=== PATIENT | female | born 1990 | race Two or more races ===

== ENCOUNTER 2019-09-14 19:12 | Emergency (ER) | payer MEDICAID ==
[~2019-09-14] VITALS: Ht 154.9 cm; Wt 81.4 kg
[~2019-09-14 19:12] MED LIST: IBUP200T49 PO; OXYC-302 PO
--- NOTE | 2019-09-14 20:18 | NUR ---
PT TO TRIAGE, PA AT PT'S SIDE FOR EVAL
--- NOTE | 2019-09-14 20:30 | NUR ---
Pt back to room.
[2019-09-14 20:44] LABS: BASOPHILS # (AUTO) 0.04 x10^3/uL (0-0.1); BASOPHILS % (AUTO) 1 % (0-1); EOSINOPHILS # (AUTO) 0.12 x10^3/uL (0-0.4); EOSINOPHILS % (AUTO) 1 % (1-7); LYMPHOCYTES # (AUTO) 1.24 x10^3/uL (1-3.4); LYMPHOCYTES % (AUTO) 15 % (22-44); MD NO; MEAN CORPUSCULAR HEMOGLOBIN 29.5 pg (27.0-34.8); MEAN CORPUSCULAR VOLUME 89.4 fL (80-100); MEAN PLATELET VOLUME 7.2 fL (7.4-10.4); MONOCYTES # (AUTO) 0.73 x10^3/uL (0.2-0.8); MONOCYTES % (AUTO) 9 % (2-9); NEUTROPHILS # (AUTO) 6.43 x10^3/uL (1.8-6.8); NEUTROPHILS % (AUTO) 75 % (42-75); PLATELET COUNT 325 x10^3/uL (130-400); RED BLOOD COUNT 4.83 x10^6/uL (3.82-5.3)
[2019-09-14 20:53] LABS: ALBUMIN 3.8 g/dL (3.4-5.0); ANION GAP 5 mmol/L (5-15); CALCIUM 8.9 mg/dL (8.5-10.1); CHLORIDE 109 mmol/L (98-107); CREATININE 0.86 mg/dL (0.55-1.02)
--- NOTE | 2019-09-14 20:56 | NUR ---
Pt here for vaginal pain s/p intercourse. Pt reports she feels her cervix dislodged and not right. Pt reports no bleeding and no new toys or didnt try anything new with her partner. Pt reports that she also has pelvic pain as well. Pt in [facility] [place], awaiting further orders.
--- NOTE | 2019-09-14 21:00 | NUR ---
pt unable to provide.
--- NOTE | 2019-09-14 21:05 | NUR ---
Ua collected and sent to lab.
[2019-09-14 21:14] LABS: MICROSCOPIC NOT IND
[2019-09-14 21:16] VITALS: BP 109/62
[2019-09-14 21:16] LABS: CULTURE INDICATED? NO
--- NOTE | 2019-09-14 21:16 | NUR ---
TASK RN: PT BACK FROM US, VSS, CALL LIGHT IN REACH
[2019-09-14] MEDS ORDERED: KETOROLAC 30 MG/1 ML IVPush ONE (21:30)
== END 2019-09-14 21:51 | disposition home or self-care (01) ==
LOC: ED 21:36
DX: R10.2 Pelvic and perineal pain (principal)
CPT/HCPCS: 36415; 76830; 80048; 81003; 82040; 84703; 85025; 99284

== ENCOUNTER 2021-04-13 15:17 | Emergency (ER) | payer MEDICAID ==
[~2021-04-13 15:17] MED LIST changes: -OXYC-302 PO; +OXYC1TAB14 PO
--- NOTE | 2021-04-13 15:50 | NUR ---
NA X1
--- NOTE | 2021-04-13 16:08 | NUR ---
NA X1
--- NOTE | 2021-04-13 16:25 | NUR ---
NA X3
== END 2021-04-13 17:05 | disposition left against medical advice (07) ==
LOC: ED 16:00
DX: Z11.3 Encounter for screening for infections with a predominantly sexual mode of transmission (principal); Z53.21 Procedure and treatment not carried out due to patient leaving prior to being seen by health care provider